=== PATIENT | male | born 1975 | race Caucasian/White ===

== ENCOUNTER 2020-07-06 04:06 | Emergency (ER) | payer OTHER ==
[~2020-07-06] VITALS: Ht 193 cm; Wt 86.2 kg
[2020-07-06 04:15] VITALS: BP 150/97
--- NOTE | 2020-07-06 04:15 | NUR ---
PT AAOX4. BIBSELF C/O CP X 1HR, SHARP/STABBING PAIN MIDSTERNAL, NON RADIATING. MD AT BEDSIDE FOR EVAL. AWITING ORDERS.
--- NOTE | 2020-07-06 04:18 | NUR ---
EMT AT BEDSIDE FOR EKG
--- NOTE | 2020-07-06 04:41 | NUR ---
PATIENT HAS BEEN USING 2 DIFFERENT NAMES, LINCOLN WHALEY AND LIN[facility]N SELF. MD NOTIFIED.
--- NOTE | 2020-07-06 04:55 | NUR ---
PATIENT STATES, I AM LEAVING. ID BAND REMOVED. NOTIFIED.
[2020-07-06 04:57] LABS: BASOPHILS % (AUTO) 0.7 % (0.0-2.0); EOSINOPHILS % (AUTO) 1.5 % (0.0-6.0); HEMATOCRIT 40 % (39-51); HEMOGLOBIN 13.1 g/dL (13.5-17.5); LYMPHOCYTES # (AUTO) 1.7 /CMM (0.8-4.8); LYMPHOCYTES % (AUTO) 29.4 % (20.0-44.0); MEAN CORPUSCULAR HGB CONC 33 g/dl (31.0-36.0); MEAN CORPUSCULAR VOLUME 91 fL (80-96); MONOCYTES # (AUTO) 0.7 /CMM (0.1-1.30); NEUTROPHILS # (AUTO) 3.2 /CMM (1.8-8.9); NEUTROPHILS % (AUTO) 56.4 % (43.0-81.0); PLATELET COUNT (AUTO) 199 /CMM (150-450); RED BLOOD CELL COUNT(AUTO) 4.35 MIL/uL (4.5-6.0); WHITE BLOOD COUNT (AUTO) 5.7 K/uL (4.3-11.0)
[2020-07-06 05:06] LABS: CALCIUM, SERUM 9.2 mg/dL (8.5-10.1); CARBON DIOXIDE 28 mmol/L (21-32); CHLORIDE 105 mmol/L (98-107); CREATININE 0.9 mg/dL (0.6-1.3); GLUCOSE 81 mg/dL (74-106); POTASSIUM 3.7 mmol/L (3.5-5.1); SODIUM SERUM 142 mmol/L (136-145); UREA NITROGEN, BLOOD 35 mg/dL (7-18)
[2020-07-06 05:17] LABS: ALANINE AMINOTRANSFERASE 36 U/L (12-78); ALBUMIN 4.2 g/dL (3.4-5.0); ALKALINE PHOSPHATASE 61 U/L (46-116); ASPARTATE AMINOTRANSFERASE 28 U/L (15-37); B-TYPE NATRIURETIC PEPTIDE 188 PG/ML (0-125); BILIRUBIN,DIRECT 0.2 mg/dL (0.0-0.2); BILIRUBIN,TOTAL 1.2 mg/dL (0.2-1.0)
== END 2020-07-06 04:58 | disposition left against medical advice (07) ==
LOC: ER 04:09
DX: R07.89 Other chest pain (principal); I11.0 Hypertensive heart disease with heart failure; I50.9 Heart failure, unspecified; Z59.0 Homelessness
CPT/HCPCS: 36415; 80048-TC; 80076-TC; 83880; 84484-TC; 85025-TC